=== PATIENT | female | born 1980 | race Hispanic/Latino ===

== ENCOUNTER 2017-10-21 10:04 | Emergency (ER) | payer SELFPAY ==
[2017-10-21] MEDS ORDERED: MOTRIN PO ONE (10:51)
--- NOTE | 2017-10-21 10:54 | Emergency Department Report ---
Blank Doc - Documentation Documentation: Patient is a 37-year-old female who is presenting with vaginal bleeding. Patient states this second episode of bleeding this month. Patient states she had a normal period and then stop bleeding for several days and has been bleeding for approximately 4-5 days again but heavier. Patient states she has some very mild fatigue associated with this bleeding. Patient states there is some crampy lower abdominal pain that is a 4 out of 10 in severity. Patient denies any fevers chills dysuria syncope at this time. Patient will have a blood test performed as well as a CBC to ensure that we do not need to do a blood transfusion. Patient also had an ultrasound either OB non-OB to determine the cause of her heavy vaginal bleeding. Or
[2017-10-21 11:09] LABS: Hematocrit 37.5 % (30.3-42.9); Hemoglobin 12.3 gm/dl (10.1-14.3); Mean Corpuscular HGB Conc 33 % (30-34); Mean Corpuscular Hemoglobin 33 pg (28-32); Mean Corpuscular Volume 100 fl (79-97); Platelet Count 200 K/mm3 (140-440); Red Blood Count 3.74 M/mm3 (3.65-5.03)
[2017-10-21] MEDS ORDERED: PROVENTIL IH ONE (12:16)
--- NOTE | 2017-10-21 12:44 | Ultrasound Report ---
Pelvic and transvaginal sonography: History: Heavy vaginal bleeding. Findings: Uterus measures 8.5 x 4.2 x 5.3 cm. Endometrial thickness is 14 mm. Calcification is noted the endometrium however no mass or fluid is identified. No mass in the myometrium. Right ovary not visualized. Left ovary 1.7 x 2.1 x 1.8 cm. No mass. No fluid in the cul-de-sac. Impression: Thickened endometrium with findings as detailed above.
[2017-10-21 13:23] LABS: Bacteria,Urine 3+ /HPF (Negative); Bilirubin,Urine NEG (Negative); Blood,Urine LG (Negative); Calcium Oxalate Crystals,Urine 1+; Color,Urine Red (Yellow); Urobilinogen,Urine < 2.0 mg/dL (<2.0)
[2017-10-21 13:33] LABS: RBC,Urine > 182.0 /HPF (0.0-6.0)
--- NOTE | 2017-10-21 13:46 | Emergency Department Report ---
ED Female HPI - General Chief complaint: Vaginal Bleeding Stated complaint: ABDOMINAL PAIN Time Seen by Provider: 10/21/17 10:45 Source: patient Mode of arrival: Ambulatory Limitations: No Limitations - History of Present Illness Initial comments: 37-year-old female past medical history morbid obesity diabetes asthma hypertension anemia sleep apnea presents with complaint of persistent heavy vaginal bleeding for one week. Patient states she is currently on Depo-Provera via her [facility] for control of heavy periods and control. Patient denies nausea or vomiting but states she has felt slightly weak, intermittently over the course of last week. Patient is awake alert and oriented 3 fully lucid. States she has been changing multiple pads and tampons per day. MD Complaint: vaginal bleeding Onset/Timin -: week(s) Location: suprapubic Radiation: suprapubic Severity: mild Quality: cramping Consistency: intermittent Are you Now?: No Last Menstrual Period: 10/14/17 EDC: 07/21/18 Associated Symptoms: vaginal bleeding - Related Data Previous Rx's Medication Instructions Recorded Last Taken Type Acetaminophen/Codeine [Tylenol 1 tab PO Q6H PRN #8 tab 10/21/17 Unknown Rx /Codeine # 3 tab] Sulfamethoxazole/Trimethoprim 1 each PO BID #6 tablet 10/21/17 Unknown Rx [Bactrim DS TAB] medroxyPROGESTERone ACETATE 10 mg PO QDAY #5 tablet 10/21/17 Unknown Rx [Provera] Allergies Allergy/AdvReac Type Severity Reaction Status Date / Time quetiapine [From Seroquel] Allergy Hives Verified 10/21/17 10:15 ED Review of Systems ROS: Stated complaint: ABDOMINAL PAIN Other details as noted in HPI Constitutional: denies: chills, fever Eyes: denies: eye pain, eye discharge, vision change ENT: denies: ear pain, throat pain Respiratory: denies: cough, shortness of breath, wheezing Cardiovascular: denies: chest pain, palpitations Endocrine: no symptoms reported Gastrointestinal: denies: abdominal pain, nausea, diarrhea Genitourinary: denies: urgency, dysuria, discharge Musculoskeletal: denies: back pain, joint swelling, arthralgia Skin: denies: rash, lesions Neurological: denies: headache, weakness, paresthesias Psychiatric: denies: anxiety, depression Hematological/Lymphatic: denies: easy bleeding, easy bruising ED Past Medical Hx - Past Medical History Hx Hypertension: Yes Hx Diabetes: Yes Hx Asthma: Yes Additional medical history: Anemia, sleep apnea, depression, PTSD - Surgical History Hx Cholecystectomy: Yes - Social History Smoking Status: Former Smoker Substance Use Type: None - Medications Home Medications: Home Medications Medication Instructions Recorded Confirmed Last Taken Type Acetaminophen/Codeine [Tylenol 1 tab PO Q6H PRN #8 tab 10/21/17 Unknown Rx /Codeine # 3 tab] Sulfamethoxazole/Trimethoprim 1 each PO BID #6 tablet 10/21/17 Unknown Rx [Bactrim DS TAB] medroxyPROGESTERone ACETATE 10 mg PO QDAY #5 tablet 10/21/17 Unknown Rx [Provera] ED Physical Exam - General Limitations: No Limitations General appearance: alert, in no apparent distress - Head Head exam: Present: atraumatic, normocephalic - Eye Eye exam: Present: normal appearance, PERRL, EOMI - ENT ENT exam: Present: mucous membranes moist - Neck Neck exam: Present: normal inspection - Respiratory Respiratory exam: Present: normal lung sounds bilaterally. Absent: respiratory distress - Cardiovascular Cardiovascular Exam: Present: regular rate, normal rhythm. Absent: systolic murmur, diastolic murmur, rubs, gallop - GI/Abdominal GI/Abdominal exam: Present: soft, normal bowel sounds - Speculum exam: Present: vaginal bleeding - Extremities Exam Extremities exam: Present: normal inspection - Back Exam Back exam: Present: normal inspection - Neurological Exam Neurological exam: Present: alert, oriented X3, CN II-XII intact, normal gait - Psychiatric Psychiatric exam: Present: normal affect, normal mood - Skin Skin exam: Present: warm, dry, intact, normal color. Absent: rash ED Course Vital Signs 10/21/17 10:10 Temperature 97.7 F Pulse Rate 88 Respiratory 18 Rate Blood Pressure 147/100 ED Medical Decision Making - Lab Data Result diagrams: 10/21/17 10:35 - Medical Decision Making A/P: Abnormal uterine bleeding, menorrhagia 1-patient is not , ultrasound shows small calcification in the uterus, I informed patient of this and need to follow up with [facility]. I also informed patient that some of this bleeding may be secondary to known abnormal vaginal bleeding that can be accompanied by use of Depo-Provera 2-CBC shows stable H&H, vital signs stable for discharge 3-patient states she is already taking iron supplementation 4- as there are large WBCs and urine will treat empirically with short course of Bactrim Critical care attestation.: If time is entered above; I have spent that time in minutes in the direct care of this critically ill patient, excluding procedure time. ED Disposition Clinical Impression: Abnormal uterine bleeding Disposition: TO HOME OR SELFCARE Is pt being admited?: No Does the pt Need Aspirin: No Condition: Stable Instructions: Menorrhagia (ED), Medroxyprogesterone (By mouth) Prescriptions: Acetaminophen/Codeine [Tylenol /Codeine # 3 tab] 1 tab PO Q6H PRN #8 tab PRN Reason: Pain medroxyPROGESTERone ACETATE [Provera] 10 mg PO QDAY #5 tablet Sulfamethoxazole/Trimethoprim [Bactrim DS TAB] 1 each PO BID #6 tablet Referrals: [facility] [Provider Group] - 3-5 Days [facility] [Provider Group] - 3-5 Days Forms: Work/School Release Form(ED) Time of Disposition: 13:45
[2017-10-21 13:47] VITALS: BP 148/68
== END 2017-10-21 13:56 | disposition home or self-care (01) ==
LOC: ED 10:04
DX: N93.9 Abnormal uterine and vaginal bleeding, unspecified (principal); I10 Essential (primary) hypertension; E11.9 Type 2 diabetes mellitus without complications; J45.909 Unspecified asthma, uncomplicated; Z90.49 Acquired absence of other specified parts of digestive tract; Z87.891 Personal history of nicotine dependence; Z88.2 Allergy status to sulfonamides
CPT/HCPCS: 36415; 76830; 76856; 81001; 84703; 85027; 87076; 87086; 87186; 99284; J2920

== ENCOUNTER 2018-12-16 07:13 | Emergency (ER) | payer SELFPAY ==
[2018-12-16 07:27] VITALS: BP 155/83
[2018-12-16] MEDS ORDERED: BENADRYL PO ONE (08:12)
[2018-12-16] MEDS ORDERED: DECADRON IM ONE (08:12)
[2018-12-16] MEDS ORDERED: REGLAN PO ONE (08:12)
[2018-12-16] MEDS ORDERED: TORADOL IM ONE (08:12)
--- NOTE | 2018-12-16 08:16 | Emergency Department Report ---
<FELECIA MORILLO T - Last Filed: 12/16/18 09:23> ED Headache HPI - General Chief Complaint: Headache Stated Complaint: LFT SIDE NECK/PAIN Time Seen by Provider: 12/16/18 08:11 Source: patient Exam Limitations: no limitations - History of Present Illness Initial Comments: reports hx migraines however not as severe as current headache which has gradually worsened since 4 AM (4 hours) reports n/v no neck stiffness/fevers no neuro deficits Timing/Duration: 4-6 hours Quality: severe Head Injury Location: occipital Recent Head Trauma: occasional headaches Associated Symptoms: denies symptoms Allergies/Adverse Reactions: Allergies quetiapine [From Seroquel] Allergy (Verified 10/21/17 10:15) Hives Home Medications: Ambulatory Orders Acetaminophen/Codeine [Tylenol /Codeine # 3 tab] 1 tab PO Q6H PRN #8 tab 10/21/17 Sulfamethoxazole/Trimethoprim [Bactrim DS TAB] 1 each PO BID #6 tablet 10/21/17 medroxyPROGESTERone ACETATE [Provera] 10 mg PO QDAY #5 tablet 10/21/17 Butalb/Acetamin/Caff 50-325-40 [Fioricet 50-325-40] 1 tab PO Q6HR PRN #12 tab 12/16/18 Promethazine [Phenergan] 25 mg PO Q6HR PRN #12 tab 12/16/18 ED Review of Systems Comment: All other systems reviewed and negative Gastrointestinal: as per HPI Neurological: as per HPI ED Past Medical Hx - Past Medical History Previous Medical History?: Yes Hx Hypertension: Yes Hx Diabetes: Yes Hx Asthma: Yes Additional medical history: Anemia, sleep apnea, depression, PTSD - Surgical History Past Surgical History?: Yes Hx Cholecystectomy: Yes - Social History Smoking Status: Former Smoker Substance Use Type: None - Medications Home Medications: Home Medications Medication Instructions Recorded Confirmed Last Taken Type Acetaminophen/Codeine [Tylenol 1 tab PO Q6H PRN #8 tab 10/21/17 Unknown Rx /Codeine # 3 tab] Sulfamethoxazole/Trimethoprim 1 each PO BID #6 tablet 10/21/17 Unknown Rx [Bactrim DS TAB] medroxyPROGESTERone ACETATE 10 mg PO QDAY #5 tablet 10/21/17 Unknown Rx [Provera] Butalb/Acetamin/Caff 50-325-40 1 tab PO Q6HR PRN #12 tab 12/16/18 Unknown Rx [Fioricet 50-325-40] Promethazine [Phenergan] 25 mg PO Q6HR PRN #12 tab 12/16/18 Unknown Rx ED Physical Exam - General Limitations: No Limitations General appearance: alert, in no apparent distress - Head Head exam: Present: atraumatic, normocephalic - Eye Eye exam: Present: normal appearance, PERRL, EOMI Pupils: Present: normal accommodation - ENT ENT exam: Present: normal orophraynx, mucous membranes moist - Neck Neck exam: Present: normal inspection, full ROM. Absent: meningismus - Respiratory Respiratory exam: Present: normal lung sounds bilaterally. Absent: respiratory distress - Cardiovascular Cardiovascular Exam: Present: regular rate, normal rhythm. Absent: systolic murmur, diastolic murmur, rubs, gallop - GI/Abdominal GI/Abdominal exam: Present: soft, normal bowel sounds - Extremities Exam Extremities exam: Present: normal inspection - Back Exam Back exam: Present: normal inspection - Neurological Exam Neurological exam: Present: alert, oriented X3, CN II-XII intact, normal gait, reflexes normal. Absent: motor sensory deficit - Psychiatric Psychiatric exam: Present: normal affect, normal mood - Skin Skin exam: Present: warm, dry, intact, normal color. Absent: rash ED Medical Decision Making - Radiology Data Radiology results: report reviewed neg Ct head - Medical Decision Making CC: LANE, worse than typical migraines Exam: neuro nonfocal, no distress Plan: reglan, benadryl, toradol, decadron, CT head - Differential Diagnosis migraine, tension lane, ICH ED Disposition Clinical Impression: Migraine headache Disposition: - TO HOME OR SELFCARE Is pt being admited?: No Condition: Good Instructions: Migraine Headache (ED) Prescriptions: Butalb/Acetamin/Caff 50-325-40 [Fioricet 50-325-40] 1 tab PO Q6HR PRN #12 tab PRN Reason: Headache Promethazine [Phenergan] 25 mg PO Q6HR PRN #12 tab PRN Reason: Nausea Referrals: FAISAL MOCTEZUMA MD [Primary Care Provider] - 3-5 Days Time of Disposition: 09:23 <JOSE A SYED - Last Filed: 01/28/19 17:47> ED Review of Systems ROS: Stated complaint: LFT SIDE NECK/PAIN Other details as noted in HPI ED Course Vital Signs 12/16/18 07:24 Temperature 97.6 F Pulse Rate 89 Respiratory 20 Rate Blood Pressure 155/83 O2 Sat by Pulse 97 Oximetry ED Medical Decision Making - Medical Decision Making The midlevel was asked to contact this patient for follow up. This case was concerning for no evaluation for [facility] per documentation. Midlevel reports patient is feeling fine. Critical care attestation.: If time is entered above; I have spent that time in minutes in the direct care of this critically ill patient, excluding procedure time. ED Disposition Is pt being admited?: No
--- NOTE | 2018-12-16 09:05 | Cat Scan Report ---
CT head without contrast INDICATION : Headache. TECHNIQUE: Axial imaging performed from the skull apex through the skull base without the use of con trast. All CT examinations performed at this facility utilize dose modulation, iterative reconstruct ion or weight-based dosing, when appropriate, to reduce radiation dose to as low as reasonably achiev able. COMPARISON: None FINDINGS: No acute intracranial hemorrhage or parenchymal abnormality. Ventricles are normal in si ze and appear symmetric. Soft tissues including the orbits appear normal. No acute osseous abnorm ality. Sinuses and mastoid air cells are clear. IMPRESSION: No acute abnormality. Signer Name: Gianni Nina MD Signed: 12/16/2018 9:01 AM Workstation Name: [id number]
== END 2018-12-16 09:53 | disposition home or self-care (01) ==
LOC: ED 07:13
DX: G43.909 Migraine, unspecified, not intractable, without status migrainosus (principal); I10 Essential (primary) hypertension; D64.9 Anemia, unspecified; F32.9 Major depressive disorder, single episode, unspecified; F43.10 Post-traumatic stress disorder, unspecified; Z90.49 Acquired absence of other specified parts of digestive tract; Z87.891 Personal history of nicotine dependence
CPT/HCPCS: 70450; 96372; 99283; J1100; J1885